=== PATIENT | female | born 1935 | race Caucasian/White ===

== ENCOUNTER 2017-05-24 09:37 | Emergency (ER) | payer MEDICARE ==
[~2017-05-24] VITALS: Ht 160 cm; Wt 62.0 kg
[~2017-05-24 09:37] MED LIST: ABIL2TAB2 OR; CLON1 PO; CYMB60CA OR; LEVO50TA4 PO; OMEP20CA5 PO; OMPR20CCR; OXYC-360 PO; SERO25TA PO; SPIR50; ZOPENEX; [UNRECOGNIZED DRUG - OTHER]; [UNRECOGNIZED DRUG - OTHER]
[2017-05-24 09:44] VITALS: BP 135/61; PULSE 67; RESP 18; TEMP 97.6; O2SAT 95
--- NOTE | 2017-05-24 10:22 | PD ---
HPI Chief Complaint: Headache Time Seen by Provider: 10:00 Travel History International Travel<30 days: No Contact w/Intl Traveler<30days: No Traveled to known affect area: No History of Present Illness HPI Patient is a 78 history Presents to the emergency department for evaluation of headache past 4 days. The patient has a history of subdural hematoma in the past. She is not on any anticoagulants at this time. She describes a mechanical fall at home four days ago. Denies any chest pain shortness of breath abdominal pain nausea vomiting diarrhea blurred vision focalized weakness neck pain or back pain. PFSH Past Medical History Arthritis: Yes Asthma: No Blood Disorders: No Anxiety: Yes Depression: Yes Heart Rhythm Problems: No Cancer: Yes (BREAST, '03, WITH XRT) Cardiovascular Problems: Yes High Cholesterol: Yes Chest Pain: No Congestive Heart Failure: Yes COPD: Yes Cerebrovascular Accident: No Diabetes: No Gastrointestinal Disorders: Yes GERD: Yes Glaucoma: No Genitourinary: Yes Headaches: No Hepatitis: No Hiatal Hernia: No Hypertension: Yes Kidney Stones: No Medical other: Yes (hx of pulmonary embolus) Musculoskeletal: Yes Neurologic: Yes Reproductive: No Respiratory: Yes (PULMONARY FIBROSIS) Migraines: No Myocardial Infarction: Yes Renal Failure: No Seizures: No Sleep Apnea: No Thyroid Disease: Yes Ulcer: No Tetanus Vaccination: < 5 Years Influenza Vaccination: Yes Menopausal: Yes Past Surgical History Appendectomy: Yes Cardiac Surgery: No Cholecystectomy: Yes Ear Surgery: No Endocrine Surgery: No Eye Surgery: Yes (maisha cataract removal) Genitourinary Surgery: No Gynecologic Surgery: Yes (hysterectomy) Hysterectomy: Yes Neurologic Surgery: Yes (anterior cervical fusion c&s) Oral Surgery: No Pacemaker: No Thoracic Surgery: Yes (right breast lumpectomy) Other Surgery: Yes Social History Alcohol Use: Yes (GLASS OF WINE NIGHTLY) Tobacco Use: No Substance Use: No Allergies-Medications (Allergen,Severity, Reaction): Coded Allergies: penicillin G (Unverified Allergy, Severe, 05/20/17) skin irritation and rash Sulfa (Sulfonamide Antibiotics) (Unverified Allergy, Mild, 05/20/17) levofloxacin (Unverified Allergy, Mild, Rash, 05/20/17) Reported Meds & Prescriptions Reported Meds & Active Scripts Active Fioricet (Wllvbnlist-Stutrpobnrmlt-Haruavtq) 50-300-40 Mg Cap 1 Cap PO Q6H PRN Reported Vitamin D3 (Cholecalciferol) 50,000 Unit Cap 50,000 Units PO Q7D Gabapentin 400 Mg Cap 400 Cap PO HS Omeprazole 20 Mg Tab 20 Mg PO BID Raloxifene (Raloxifene HCl) 60 Mg Tab 60 Mg PO DAILY Metoprolol Tartrate 25 Mg Tab 25 Mg PO BID Levothyroxine (Levothyroxine Sodium) 88 Mcg Tab 88 Mcg PO DAILY Isosorbide Mononitrate 20 Mg Tab 20 Mg PO BID Take 2 doses 7 hours apart. Spironolactone 25 Mg Tab 25 Mg PO DAILY Review of Systems Except as stated in HPI: all other systems reviewed are Neg Physical Exam Narrative GENERAL: Well-developed well-nourished no obvious distress, quite pleasant. SKIN: Focused skin assessment warm/dry. HEAD: Atraumatic. Normocephalic. No seaman signs no raccoons eyes EYES: Pupils equal and round. No scleral icterus. No injection or drainage. ENT: No nasal bleeding or discharge. Mucous membranes pink and moist. NECK: Trachea midline. No JVD. CARDIOVASCULAR: Regular rate and rhythm. No murmur appreciated. RESPIRATORY: No accessory muscle use. Clear to auscultation. Breath sounds equal bilaterally. GASTROINTESTINAL: Abdomen soft, non-tender, nondistended. Hepatic and splenic margins not palpable. MUSCULOSKELETAL: No obvious deformities. No clubbing. No cyanosis. No edema. NEUROLOGICAL: Awake and alert. Cranial nerves II through XII are grossly intact nonfocal, 5 out of 5 strength in all 4 extremities, cerebellar testing negative, ambulates within even narrow based gait. PSYCHIATRIC: Appropriate mood and affect; insight and judgment normal. Data Data Last Documented VS Vital Signs Date Time Temp Pulse Resp B/P (MAP) Pulse Ox O2 Delivery O2 Flow Rate FiO2 05/24/17 10:18 97 Room Air 05/24/17 09:44 97.6 67 18 135/61 (85) Orders Orders Ct Brain W/O Iv Contrast(Rout) (05/24/17 ) Ct Cerv Spine W/O Contrast (05/24/17 ) MDM Medical Decision Making Medical Screen Exam Complete: Yes Emergency Medical Condition: Yes Differential Diagnosis Closed head injury, cranial hemorrhage, neck injury, mechanical fall. Narrative Course Patient roomed in emergency department neurologically intact and shows no visible signs of trauma. CAT scan of head and neck are negative. Discussed fall prevention she is stable for discharge discussed return to ED criteria. We did discuss the lung nodule and recommended that she follows up with her primary care physician. Last [address] 05/24/17 0000 Signed Impressions: Service Date/Time: Wednesday, May 24, 2017 10:27 - CONCLUSION: Nonspecific white matter changes. Johnnie Rucker MD Cervical Spine CT 05/24/17 0000 Signed Impressions: Service Date/Time: Wednesday, May 24, 2017 10:27 - CONCLUSION: 1. Anterior fusion C4-C6. 2. No fracture or subluxation. 3. Interstitial lung disease and biapical pleural-parenchymal densities. Followup CT chest in 3 months recommended. Johnnie Rucker MD Diagnosis Primary Impression: Closed head injury Additional Impression: Lung nodule Med/Other Pt SpecificInfo: Prescription(s) given Scripts Mxjqrapvgf-Daneareorskfd-Fbafzgjo (Fioricet) 50-300-40 Mg Cap 1 CAP PO Q6H Y for HEADACHE, #15 CAP 0 Refills Prov: Wlater Del Cid MD 05/24/17 Disposition: 01 DISCHARGE HOME Condition: Stable Walter Del Cid MD May 24, 2017 10:22
[2017-05-24] MEDS ORDERED: METO25TA3 PO (10:24)
[2017-05-24] MEDS ORDERED: RALO1TAB PO (10:24)
[2017-05-24] MEDS ORDERED: GABA400C5 PO (10:24)
[2017-05-24] MEDS ORDERED: CHOL1CAP34 PO (10:24)
[2017-05-24] MEDS ORDERED: OMEP20TA PO (10:24)
[2017-05-24] MEDS ORDERED: ISOS20TA PO (10:24)
[2017-05-24] MEDS ORDERED: SPIR25TA PO (10:24)
[2017-05-24] MEDS ORDERED: LEVO88TA2 PO (10:24)
--- NOTE | 2017-05-24 10:48 | RADRPT ---
EXAM DATE/TIME: 05/24/2017 10:27 [facility] COMPARISON: No previous studies available for comparison. INDICATIONS : Fall hitting back of head. RADIATION DOSE: 52.35 CTDIvol (mGy) MEDICAL HISTORY : Pulmonary fibrosis, colon resection, Hx PE SURGICAL HISTORY : Hysterectomy. Cervial fusion ENCOUNTER: Initial ACUITY: 3 days PAIN SCALE: 8/10 LOCATION: cranial posterior. TECHNIQUE: Multiple contiguous axial images were obtained of the head. Using automated exposure control and adj ustment of the mA and/or kV according to patient size, radiation dose was kept as low as reasonably a chievable to obtain optimal diagnostic quality images. DICOM format image data is available electro nically for review and comparison. FINDINGS: CEREBRUM: Areas of low-attenuation in periventricular white matter. The ventricles are normal for age. No evid ence of midline shift, mass lesion, hemorrhage or acute infarction. No extra-axial fluid collections are seen. POSTERIOR FOSSA: The cerebellum and brainstem are intact. The 4th ventricle is midline. The cerebellopontine angle i s unremarkable. EXTRACRANIAL: The visualized portion of the orbits is intact. SKULL: The calvaria is intact. No evidence of skull fracture. CONCLUSION: Nonspecific white matter changes. Johnnie Rucker MD on May 24, 2017 at 10:46 Board Certified Radiologist. This report was verified electronically.
--- NOTE | 2017-05-24 11:00 | RADRPT ---
EXAM DATE/TIME: 05/24/2017 10:27 [facility] COMPARISON: No previous studies available for comparison. INDICATIONS : Fall hitting the back of head. RADIATION DOSE: 25.19 CTDIvol (mGy) MEDICAL HISTORY : Carcinoma, breast. Pulmonary fibrosis, hx PE, Colon resection.Rad Tx. SURGICAL HISTORY : Cervical fusion. ENCOUNTER: Initial ACUITY: 3 days PAIN SCALE: 8/10 LOCATION: Bilateral neck TECHNIQUE: Volumetric scanning of the cervical spine was performed. Multiplanar reconstructions in the sagittal, coronal and oblique axial planes were performed. Using automated exposure control and adjustment o f the mA and/or kV according to patient size, radiation dose was kept as low as reasonably achievable to obtain optimal diagnostic quality images. DICOM format image data is available electronically f or review and comparison. FINDINGS: VERTEBRAE: Normal vertebral body height. Anterior fusion plate C4-C6. ALIGNMENT: No evidence of subluxation. Interstitial lung disease with biapical pleural-parenchymal densities C2-C3: The bony spinal canal is normal in size. No evidence of disc bulge or herniation. The neural forami na are bilaterally patent. C3-C4: The bony spinal canal is normal in size. No evidence of disc bulge or herniation. The neural forami na are bilaterally patent. C4-C6: Anterior fusion plate. The bony spinal canal is normal in size. No evidence of disc bulge or herniat ion. The neural foramina are bilaterally patent. C6-C7: The bony spinal canal is normal in size. No evidence of disc bulge or herniation. The neural forami na are bilaterally patent. C7-T1: The bony spinal canal is normal in size. No evidence of disc bulge or herniation. The neural forami na are bilaterally patent. CONCLUSION: 1. Anterior fusion C4-C6. 2. No fracture or subluxation. 3. Interstitial lung disease and biapical pleural-parenchymal densities. Followup CT chest in 3 month s recommended. Johnnie Rucker MD on May 24, 2017 at 10:56 Board Certified Radiologist. This report was verified electronically.
[2017-05-24] MEDS ORDERED: BUTA1CAP PO (11:11)
== END 2017-05-24 11:15 | disposition home or self-care (01) ==
LOC: PHED 09:37
DX: S09.90XA Unspecified injury of head, initial encounter (principal); R91.1 Solitary pulmonary nodule; W19.XXXA Unspecified fall, initial encounter; Y92.009 Unspecified place in unspecified non-institutional (private) residence as the place of occurrence of the external cause
CPT/HCPCS: 70450; 72125; 99285

== ENCOUNTER 2018-03-22 08:47 | Observation (INO) | payer MEDICARE ==
[2018-03-22] VITALS (7 sets, daily range): BP systolic 122–140; BP diastolic 58–74; PULSE 59–73; RESP 18–20; TEMP 97.8; O2SAT 93–98
[~2018-03-22] VITALS: Ht 162.6 cm; Wt 60.3 kg
[~2018-03-22 08:47] MED LIST changes: -ABIL2TAB2 OR; +BUTA1CAP PO; +CHOL1CAP34 PO; -CLON1 PO; -CYMB60CA OR; +GABA400C5 PO; +ISOS20TA PO; -LEVO50TA4 PO; +LEVO88TA2 PO; +METO25TA3 PO; -OMEP20CA5 PO; +OMEP20TA93 PO; -OMPR20CCR; -OXYC-360 PO; +RALO1TAB PO; -SERO25TA PO; +SPIR25TA PO; -SPIR50; -ZOPENEX; -[UNRECOGNIZED DRUG - OTHER]; -[UNRECOGNIZED DRUG - OTHER]
[2018-03-22] MEDS ORDERED: NITR0.4S SL (09:00)
--- NOTE | 2018-03-22 09:04 | PD ---
HPI Chief Complaint: Chest Pain Time Seen by Provider: 09:03 Travel History International Travel<30 days: No Contact w/Intl Traveler<30days: No Traveled to known affect area: No History of Present Illness HPI 82-year-old female came to the emergency room brought by her daughter with history of substernal chest pain on and off since last night. Patient describes the pain as sharp and nonradiating. No aggravating or relieving factors identified. The pain was last they are just 5-10 minutes prior to my arrival. Patient has not had this kind of pain in the past. As per the daughter she has history of coronary arteries spasm about 15-20 years ago. She is not on any blood thinners. She has acceptable vital signs. Patient's last stress test was couple years ago as per the daughter. No history of shortness of breath or hemoptysis. No history of syncopal episode or dizziness. Patient has history of PE about 15 years ago. PFSH Past Medical History Narrative Medical List of her past medical, surgical, social and family history is reviewed from the nursing note. Arthritis: Yes Asthma: No Blood Disorders: No Anxiety: Yes Depression: Yes Heart Rhythm Problems: No Cancer: Yes (BREAST, '03, WITH XRT) Cardiovascular Problems: Yes High Cholesterol: Yes Chest Pain: No Congestive Heart Failure: Yes COPD: Yes Cerebrovascular Accident: No Diabetes: No Gastrointestinal Disorders: Yes GERD: Yes Glaucoma: No Genitourinary: Yes Headaches: No Hepatitis: No Hiatal Hernia: No Hypertension: Yes Kidney Stones: No Musculoskeletal: Yes Neurologic: Yes Reproductive: No Respiratory: Yes (PULMONARY FIBROSIS) Migraines: No Myocardial Infarction: Yes Renal Failure: No Seizures: No Sleep Apnea: No Thyroid Disease: Yes Ulcer: No ?: Not Menopausal: Yes Past Surgical History Appendectomy: Yes Cardiac Surgery: No Cholecystectomy: Yes Ear Surgery: No Endocrine Surgery: No Eye Surgery: Yes (maisha cataract removal) Genitourinary Surgery: No Gynecologic Surgery: Yes (hysterectomy) Hysterectomy: Yes Neurologic Surgery: Yes (anterior cervical fusion c&s) Oral Surgery: No Pacemaker: No Thoracic Surgery: Yes (right breast lumpectomy) Other Surgery: Yes Social History Alcohol Use: Yes (GLASS OF WINE NIGHTLY) Tobacco Use: No Substance Use: No Allergies-Medications (Allergen,Severity, Reaction): Coded Allergies: penicillin G (Unverified Allergy, Severe, 03/22/18) skin irritation and rash Sulfa (Sulfonamide Antibiotics) (Unverified Allergy, Mild, 03/22/18) levofloxacin (Unverified Allergy, Mild, Rash, 03/22/18) Comments List of her allergies reviewed from the nursing note Reported Meds & Prescriptions Reported Meds & Active Scripts Active Reported Viibryd (Vilazodone) 40 Mg Tab 40 Mg PO HS Nitrostat SL (Nitroglycerin) 0.4 Mg Subl 0.4 Mg SL DIRECTED PRN 1 tablet under the tongue as needed for chest pain. Repeat every 5 minutes for a total of 3 DOSES or call 911 if NO relief. Vitamin D3 (Cholecalciferol) 50,000 Unit Cap 50,000 Units PO Q7D Omeprazole 20 Mg Tab 20 Mg PO BID Metoprolol Tartrate 25 Mg Tab 25 Mg PO BID Levothyroxine (Levothyroxine Sodium) 88 Mcg Tab 88 Mcg PO DAILY Spironolactone 25 Mg Tab 25 Mg PO DAILY Narrative Medication List of her home medications reviewed from the nursing note Review of Systems Except as stated in HPI: all other systems reviewed are Neg Cardiovascular: Positive: Chest Pain or Discomfort Physical Exam Narrative GENERAL: Awake, alert, elderly, no obvious distress SKIN: Focused skin assessment warm/dry. HEAD: Atraumatic. Normocephalic. EYES: Pupils equal and round. No scleral icterus. No injection or drainage. ENT: No nasal bleeding or discharge. Mucous membranes pink and moist. NECK: Trachea midline. No JVD. CARDIOVASCULAR: Regular rate and rhythm. No murmur appreciated. RESPIRATORY: No accessory muscle use. Clear to auscultation. Breath sounds equal bilaterally. GASTROINTESTINAL: Abdomen soft, non-tender, nondistended. Hepatic and splenic margins not palpable. MUSCULOSKELETAL: No obvious deformities. No clubbing. No cyanosis. No edema. NEUROLOGICAL: Awake and alert. No obvious cranial nerve deficits. Motor grossly within normal limits. Normal speech. PSYCHIATRIC: Appropriate mood and affect; insight and judgment normal. Data Data Last Documented VS Vital Signs Date Time Temp Pulse Resp B/P (MAP) Pulse Ox O2 Delivery O2 Flow Rate FiO2 03/22/18 10:45 68 18 133/64 (87) 98 Nasal Cannula 2.00 03/22/18 08:53 97.8 Orders Orders Electrocardiogram (03/22/18 08:57) Complete Blood Count With Diff (03/22/18 08:57) Basic Metabolic Panel (Bmp) (03/22/18 08:57) Ckmb (Isoenzyme) Profile (03/22/18 08:57) Troponin I (03/22/18 08:57) Chest, Single Ap (03/22/18 08:57) Iv Access Insert/Monitor (03/22/18 08:57) Ecg Monitoring (03/22/18 08:57) Oxygen Administration (03/22/18 08:57) Oximetry (03/22/18 08:57) Prothrombin Time / Inr (Pt) (03/22/18 08:57) Act Partial Throm Time (Ptt) (03/22/18 08:57) Aspirin Chew (Aspirin Chew) (03/22/18 10:00) Ct Pulmonary Angiogram (03/22/18 ) Iohexol 350 Inj (Omnipaque 350 Inj) (03/22/18 10:39) Admit Order (Ed Use Only) (03/22/18 11:13) Labs Laboratory Tests Test 03/22/18 09:00 White Blood Count 8.4 TH/MM3 Red Blood Count 4.51 MIL/MM3 Hemoglobin 14.1 GM/DL Hematocrit 42.1 % Mean Corpuscular Volume 93.2 FL Mean Corpuscular Hemoglobin 31.2 PG Mean Corpuscular Hemoglobin Concent 33.5 % Red Cell Distribution Width 13.4 % Platelet Count 372 TH/MM3 Mean Platelet Volume 7.5 FL Neutrophils (%) (Auto) 54.3 % Lymphocytes (%) (Auto) 33.5 % Monocytes (%) (Auto) 9.2 % Eosinophils (%) (Auto) 2.3 % Basophils (%) (Auto) 0.7 % Neutrophils # (Auto) 4.5 TH/MM3 Lymphocytes # (Auto) 2.8 TH/MM3 Monocytes # (Auto) 0.8 TH/MM3 Eosinophils # (Auto) 0.2 TH/MM3 Basophils # (Auto) 0.1 TH/MM3 CBC Comment DIFF FINAL Differential Comment Prothrombin Time 9.8 SEC Prothromb Time International Ratio 1.0 RATIO Activated Partial Thromboplast Time 22.6 SEC Blood Urea Nitrogen 20 MG/DL Creatinine 0.79 MG/DL Random Glucose 94 MG/DL Calcium Level 8.8 MG/DL Sodium Level 138 MEQ/L Potassium Level 3.9 MEQ/L Chloride Level 105 MEQ/L Carbon Dioxide Level 25.9 MEQ/L Anion Gap 7 MEQ/L Estimat Glomerular Filtration Rate 69 ML/MIN Total Creatine Kinase 51 U/L Troponin I LESS THAN 0.02 NG/ML MDM Medical Decision Making Medical Screen Exam Complete: Yes Emergency Medical Condition: Yes Medical Record Reviewed: Yes Interpretation(s) Twelve-lead EKG was reviewed by me. Normal sinus rhythm, normal axis, nonspecific ST-T wave changes. Heart rate of 64 bpm Differential Diagnosis ACS, non-STEMI, PE Narrative Course 11:10 AM test results are back and within normal limits. Patient was given 2 baby aspirins to chew. Given her previous history of PE a CT pulmonary angiogram was ordered which has been read by the radiologist to be negative. I would like to admit the patient to rule out ACS. Awaiting for the hospitalist to call back. Procedures EKG Prior to Arrival: No Diagnosis Primary Impression: Chest pain Qualified Codes: R07.9 - Chest pain, unspecified Admitting Information Admitting Physician Requests: Observation Arnel Samuels MD Mar 22, 2018 09:04
[2018-03-22] MEDS ORDERED: VIIB40TA PO (09:07)
[2018-03-22 09:16] LABS: AUTOMATED NEUTROPHIL # 4.5 TH/MM3 (1.8-7.7); BASOPHIL # 0.1 TH/MM3 (0-0.2); BASOPHIL % 0.7 % (0.0-2.0); EOSINOPHIL # 0.2 TH/MM3 (0-0.4); EOSINOPHIL % 2.3 % (0.0-4.0); HEMATOCRIT 42.1 % (35.0-46.0); HEMOGLOBIN 14.1 GM/DL (11.6-15.3); LYMPH % 33.5 % (9.0-44.0); LYMPHOCYTE # 2.8 TH/MM3 (1.0-4.8); MEAN CELL VOLUME 93.2 FL (80.0-100.0); MEAN CORPUSCULAR HEMOGLOBIN 31.2 PG (27.0-34.0); MEAN CORPUSCULAR HGB CONC 33.5 % (32.0-36.0); MEAN PLATELET VOLUME 7.5 FL (7.0-11.0); MONO % 9.2 % (0.0-8.0); MONOCYTE # 0.8 TH/MM3 (0-0.9); NEUT % 54.3 % (16.0-70.0); PLATELET COUNT 372 TH/MM3 (150-450); RED BLOOD COUNT 4.51 MIL/MM3 (4.00-5.30); RED CELL DISTRIBUTION WIDTH 13.4 % (11.6-17.2); WHITE BLOOD COUNT 8.4 TH/MM3 (4.0-11.0)
--- NOTE | 2018-03-22 09:20 | RADRPT ---
EXAM DATE: 03/22/2018 9:13 AM EDT AGE/SEX: 82 years / Female INDICATIONS: Chest pain today CLINICAL DATA: This is the patient's initial encounter. Patient reports that signs and symptoms have been present for 1 day and indicates a pain score of 7/10. MEDICAL/SURGICAL HISTORY: Non-responsive. Carcinoma, breast. Pulmonary fibrosis, hx PE, Colon r esection. Rad Tx None. COMPARISON: No prior exams available for comparison. FINDINGS: AP view of the chest demonstrates a normal-sized cardiac silhouette. EKG lines overlie the patient. N o effusion, consolidation, or pneumothorax is identified. Bones and soft tissues demonstrate no acute abnormality. Cervical spine hardware is present. CONCLUSION: No acute cardiopulmonary abnormality is identified. Electronically signed by: Desmond Cordero MD 03/22/2018 9:19 AM EDT
[2018-03-22 09:41] LABS: PROTHROMBIN TIME - PATIENT 9.8 SEC (9.8-11.6)
[2018-03-22 10:00] LABS: CALCIUM 8.8 MG/DL (8.5-10.1)
[2018-03-22] MEDS ORDERED: ASPIRIN 81 MG CHEW TAB CHEW ONE (10:00)
[2018-03-22 10:01] LABS: BICARBONATE 25.9 MEQ/L (21.0-32.0); BLOOD UREA NITROGEN 20 MG/DL (7-18); GLUCOSE,RANDOM 94 MG/DL (74-106)
[2018-03-22 10:02] LABS: CHLORIDE 105 MEQ/L (98-107); SODIUM (NA) 138 MEQ/L (136-145)
[2018-03-22 10:04] LABS: CREATININE 0.79 MG/DL (0.50-1.00); GLOMERULAR FILTRATION RATE 69 ML/MIN (>89)
[2018-03-22 10:09] LABS: TROPONIN I LESS THAN 0.02 NG/ML (0.02-0.05)
[2018-03-22] MEDS ORDERED: IOHEXOL 350 MG/ML 10 ML VIAL (for RAD DIAG) IVCONTRAST ONE (10:39)
--- NOTE | 2018-03-22 10:49 | RADRPT ---
EXAM DATE: 03/22/2018 10:40 AM EDT AGE/SEX: 82 years / Female INDICATIONS: Short of breath and intermittent chest pain. CLINICAL DATA: This is the patient's initial encounter. Patient reports that signs and symptoms have been present for 1 day and indicates a pain score of 3/10. MEDICAL/SURGICAL HISTORY: Carcinoma, breast. Myocardial infarct. Pulmonary embolism. Hysterectomy. Appendectomy. Cholecystectomy. Right breast lumpectomy. Colon resection. Cervical fusion. RADIATION DOSE: 9.79 CTDI (mGy) COMPARISON: [facility], CT CERVICAL SPINE W/O CONTRAST, 05/24/2017. . TECHNIQUE: Volumetric scanning was performed using a multi-row detector CT scanner during bolus infu dorothea of 50 ml Omnipaque 350 (iohexol) nonionic water-soluble contrast as a single exam dose. The trini a was post processed with a variety of visualization algorithms including full volume maximum intensi ty projection and sliding thin slab reformation. Using automated exposure control and adjustment of the mA and/or kV according to patient size, radiation dose was kept as low as reasonably achievable t o obtain optimal diagnostic quality images. FINDINGS: Pulmonary Arteries: No filling defect is identified through the segmental and some of the subsegmenta l level pulmonary arteries. Lungs: No consolidation or pneumothorax is identified. There is biapical pleural parenchymal opacity similar to the prior examination, likely representing scar. Mediastinum: The heart and great vessels demonstrate no acute abnormality. There is a stable soft ti ssue nodule in the anterior mediastinum measuring 1.6 x 1.1 cm. This was reported on a prior CT scan from 2009 but those images are not available for direct comparison. There is moderate atherosclerotic disease of the aorta. Pleurae: No pleural effusion. Axillae: No lymphadenopathy. There are surgical clips in the right axilla. Musculoskeletal: No acute osseous abnormality is identified. There are degenerative changes of the t horacic spine. Old healed right rib fractures are present. Other: Visualized upper abdominal structures demonstrate no acute abnormality. Small hiatal hernia i s present. There is pneumobilia. Postsurgical changes are present in the right breast. CONCLUSION: 1. No PE is identified. Additionally, no acute finding is identified to explain the clinical symptom s. 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 2. The soft tissue mass in the anterior mediastinum measuring 1.6 cm as remained stable compared to the [address] report. This suggests a benign process. Electronically signed by: Desmond Cordero MD 03/22/2018 10:48 AM EDT
--- NOTE | 2018-03-22 11:58 | HHI.HP ---
[facility] Service [facility] Primary Care Physician Non-Staff Admission Diagnosis Chest pain, rule out ACS Diagnoses: Chief Complaint: Atypical chest pain Travel History International Travel<30 Days: No Contact w/Intl Traveler <30 Da: No Traveled to Known Affected Are: No History of Present Illness This patient is an 82-year-old female with a history of cardiovascular spasm and came to the emergency room with 1 days of severe chest pain rated 10 out of 10, it was intermittent and sharp and not relieved with anything until she received nitro in the emergency room. Occurred at rest it was nonradiating and has had no other associated symptoms. On telemetry she has been in sinus rhythm. She has not had any elevation in her cardiac enzymes and on my review her EKG is unremarkable for ischemic changes. She has becets vascular syndrome and does not take any anti-inflammatories. She does have a history also of pancreatic stricture s/p dilation per patient. She has been admitted to this hospital for further eval. Review of Systems Constitutional: DENIES: Diaphoretic episodes, Fatigue, Fever, Weight gain, Weight loss, Chills, Dizziness, Change in appetite, Night Sweats Endocrine: DENIES: Abnorml menstrual pattern, Heat/cold intolerance, Polydipsia , Polyuria, Polyphagia Eyes: DENIES: Blurred vision, Diplopia, Eye inflammation, Eye pain, Vision loss , Photosensitivity, Double Vision Ears, nose, mouth, throat: DENIES: Tinnitus, Hearing loss, Vertigo, Nasal discharge, Oral lesions, Throat pain, Hoarseness, Ear Pain, Running Nose, Epistaxis, Sinus Pain, Toothache, Odynophagia Respiratory: DENIES: Apneas, Cough, Snoring, Wheezing, Hemoptysis, Sputum production, Shortness of breath Cardiovascular: COMPLAINS OF: Chest pain, DENIES: Palpitations, Syncope, Dyspnea on Exertion, PND, Lower Extremity Edema, Orthopnea, Claudication Gastrointestinal: DENIES: Abdominal pain, Black stools, Bloody stools, Constipation, Diarrhea, Nausea, Vomiting, Difficulty Swallowing, Anorexia Genitourinary: DENIES: Abnormal vaginal bleeding, Dysmenorrhea, Dyspareunia, Sexual dysfunction, Urinary frequency, Urinary incontinence, Urgency, Hematuria , Dysuria, Nocturia, Vaginal discharge Musculoskeletal: DENIES: Joint pain, Muscle aches, Stiffness, Joint Swelling, Back pain, Neck pain Integumentary: DENIES: Abnormal pigmentation, Pruritus, Rash, Nail changes, Breast masses, Breast skin changes, Nipple discharge Hematologic/lymphatic: DENIES: Bruising, Lymphadenopathy Immunologic/allergic: DENIES: Eczema, Urticaria Neurologic: DENIES: Abnormal gait, Headache, Localized weakness, Paresthesias, Seizures, Speech Problems, Tremor, Poor Balance Psychiatric: DENIES: Anxiety, Confusion, Mood changes, Depression, Hallucinations, Agitation, Suicidal Ideation, Homicidal Ideation, Delusions Except as stated in HPI: all other systems reviewed are Neg Past Family Social History Past Medical History Mitral valve prolapse Hypertension Hypothyroidism Pancreatic stricture 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 Past Surgical History Anterior cervical fusion Hysterectomy Bilateral cataracts Cholecystectomy Reported Medications Reviewed in the EMR, nothing new Allergies: Coded Allergies: penicillin G (Unverified Allergy, Severe, 03/22/18) skin irritation and rash Sulfa (Sulfonamide Antibiotics) (Unverified Allergy, Mild, 03/22/18) levofloxacin (Unverified Allergy, Mild, Rash, 03/22/18) Active Ordered Medications Reviewed in the EMR Family History Patient does not recall and is noncontributory due to age of 82 Social History No tobacco or alcohol dependency, lives with her son Independent with ADLs Physical Exam Vital Signs Vital Signs Date Time Temp Pulse Resp B/P (MAP) Pulse Ox O2 Delivery O2 Flow Rate FiO2 03/22/18 10:45 68 18 133/64 (87) 98 Nasal Cannula 2.00 03/22/18 10:45 68 03/22/18 09:08 98 Nasal Cannula 2.00 03/22/18 09:08 65 20 131/70 (90) 96 Nasal Cannula 2.00 03/22/18 08:56 73 24 97 Room Air 03/22/18 08:53 97.8 73 20 122/74 (90) 97 Physical Exam GENERAL: This is a well-nourished, well-developed patient, in no apparent distress. SKIN: No rashes, ecchymoses or lesions. Cool and dry. HEAD: Atraumatic. Normocephalic. No temporal or scalp tenderness. EYES: Pupils equal round and reactive. Extraocular motions intact. No scleral icterus. No injection or drainage. ENT: Nose without bleeding, purulent drainage or septal hematoma. Throat without erythema, tonsillar hypertrophy or exudate. Uvula midline. Airway patent. NECK: Trachea midline. No JVD or lymphadenopathy. Supple, nontender, no meningeal signs. CARDIOVASCULAR: Regular rate and rhythm without gallops or rubs there is a systolic murmur RESPIRATORY: Clear to auscultation. Breath sounds equal bilaterally. No wheezes , rales, or rhonchi. GASTROINTESTINAL: Abdomen soft, non-tender, nondistended. No hepato-splenomegaly , or palpable masses. No guarding. MUSCULOSKELETAL: Extremities without clubbing, cyanosis, or edema. No joint tenderness, effusion, or edema noted. No calf tenderness. Negative Homans sign bilaterally. NEUROLOGICAL: Awake and alert. Cranial nerves II through XII intact. Motor and sensory grossly within normal limits. Five out of 5 muscle strength in all muscle groups. Normal speech. Laboratory Laboratory Tests Test 03/22/18 09:00 White Blood Count 8.4 Red Blood Count 4.51 Hemoglobin 14.1 Hematocrit 42.1 Mean Corpuscular Volume 93.2 Mean Corpuscular Hemoglobin 31.2 Mean Corpuscular Hemoglobin Concent 33.5 Red Cell Distribution Width 13.4 Platelet Count 372 Mean Platelet Volume 7.5 Neutrophils (%) (Auto) 54.3 Lymphocytes (%) (Auto) 33.5 Monocytes (%) (Auto) 9.2 Eosinophils (%) (Auto) 2.3 Basophils (%) (Auto) 0.7 Neutrophils # (Auto) 4.5 Lymphocytes # (Auto) 2.8 Monocytes # (Auto) 0.8 Eosinophils # (Auto) 0.2 Basophils # (Auto) 0.1 CBC Comment DIFF FINAL Differential Comment Prothrombin Time 9.8 Prothromb Time International Ratio 1.0 Activated Partial Thromboplast Time 22.6 Blood Urea Nitrogen 20 Creatinine 0.79 Random Glucose 94 Calcium Level 8.8 Sodium Level 138 Potassium Level 3.9 Chloride Level 105 Carbon Dioxide Level 25.9 Anion Gap 7 Estimat Glomerular Filtration Rate 69 Total Creatine Kinase 51 Troponin I LESS THAN 0.02 Result Diagram: 03/22/18 0900 03/22/18 09 Imaging Last Impressions Chest X-Ray 03/22/18 0857 Signed Impressions: CONCLUSION: No acute cardiopulmonary abnormality is identified. CT Angiography 03/22/18 0000 Signed Impressions: CONCLUSION: 1. No PE is identified. Additionally, no acute finding is identified to explai n the clinical symptoms. 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 2. The soft tissue mass in the anterior mediastinum measuring 1.6 cm as remain ed stable compared to the [address] report. This suggests a benign process. Assessment and Plan Problem List: (1) Chest pain ICD Code: R07.9 - Chest pain, unspecified Status: Acute Plan: Patient with a history of cardiovascular spasm. Continue to follow on telemetry Cardiac enzymes and EKG in serial fashion Morphine, oxygen, nitro, aspirin per protocol Follow-up stress test Assessment and Plan Continue home medications for hypothyroidism, mitral valve and hypertension Discussed Condition With full code Problem Qualifiers (1) Chest pain: Qualified Codes: R07.9 - Chest pain, unspecified Melia Allison MD Mar 22, 2018 11:58
[2018-03-22] MEDS ORDERED: FAMOTIDINE 20 MG TAB PO SCH (12:00)
[2018-03-22] MEDS ORDERED: ACETAMINOPHEN/HYDROcodone 325 MG/7.5 MG TAB PO PRN (12:00)
[2018-03-22] MEDS ORDERED: METOPROLOL TARTRATE 25 MG TAB PO SCH (12:00)
[2018-03-22] MEDS ORDERED: SODIUM CHLORIDE 0.9% FLUSH 10 ML FLUSH IV FLUSH PRN (12:00)
[2018-03-22] MEDS ORDERED: PANTOPRAZOLE SOD 20 MG DELAYED RELEASE TAB PO SCH (12:00)
[2018-03-22] MEDS ORDERED: NITROGLYCERIN 0.4 MG SL 25 TABS/BTL SL PRN (12:00)
[2018-03-22 12:23] LABS: TROPONIN I LESS THAN 0.02 NG/ML (0.02-0.05)
--- NOTE | 2018-03-22 13:57 | EKG ---
Date Performed: 03/22/2018 Time Performed: 08:51:26 PTAGE: 82 years EKG: Sinus rhythm NORMAL ECG PREVIOUS TRACING : 12/21/2009 02.14 Since the previous tracing, no significant change noted DOCTOR: Jace Chow Interpretating Date/Time 03/22/2018 13:47:49
[2018-03-22] MEDS ORDERED: REGADENOSON INJ 0.4 MG/5 ML SYR IV ONE (14:12)
--- NOTE | 2018-03-22 15:12 | RADRPT ---
EXAM DATE: 03/22/2018 2:46 PM EDT AGE/SEX: 82 years / Female INDICATIONS:Angina. . Substernal chest pain for one day. CLINICAL DATA: This is the patient's initial encounter. Patient reports that signs and symptoms have been present for 1 day and indicates a pain score of 4/10. MEDICAL/SURGICAL HISTORY: Chronic obstructive pulmonary disease. Myocardial infarction. Hyster ectomy. COMPARISON: No prior exams available for comparison. DOSE: 8.5 mCi Tc 99m Myoview at rest 25.4 mCi [id number] at stress 0.4 mg Lexiscan STRESS SYMPTOMS: Asymptomatic EJECTION FRACTION: >70 % TECHNIQUE: The patient underwent pharmacologic stress with infusion of prescribed dose. Continuous ECG tracing was monitored during stress. Gated SPECT imaging was performed after stress and conventi onal SPECT imaging was performed at rest. The examination was performed on a SPECT/CT scanner, both attenuation and non-corrected datasets were reviewed. FINDINGS: Distribution: The maximum perfused segment at stress is in the anterior lateral wall. Perfusion Study: The pattern of perfusion at stress is within normal limits with regional variation s perfusion within 30%. Apparent perfusion at stress and rest is unchanged without evidence of redist ribution.. Gated Study: There are intact wall motion and wall thickening without hypokinetic or dyskinetic segm ents. The ejection fraction is calculated at >70%. RISK CATEGORY: Low (<1% Annual Motality Rate) CONCLUSION: 1. No evidence of stress-induced ischemia. 2. Intact wall motion with greater than 70% ejection fraction. Electronically signed by: Brennen Rojas MD 03/22/2018 3:11 PM EDT
--- NOTE | 2018-03-22 15:18 | HHI.DCPOC ---
Discharge Care Plan Diagnosis: (1) Chest pain Goals to Promote Your Health * To prevent worsening of your condition and complications * To maintain your health at the optimal level Directions to Meet Your Goals Take your medications as prescribed Follow your dietary instruction Follow activity as directed Keep your appointments as scheduled Take your immunizations and boosters as scheduled If your symptoms worsen call your PCP, if no PCP go to Urgent Care Center or Emergency Room Smoking is Dangerous to Your Health. Avoid second hand smoke Call the 24-hour hour crisis hotline for domestic abuse at Melia Allison MD Mar 22, 2018 15:18
[2018-03-22 16:12] LABS: TROPONIN I LESS THAN 0.02 NG/ML (0.02-0.05)
[2018-03-22] MEDS ORDERED: NON-FORMULARY DRUG (Vilazodone (Viibryd) 40 MG) PO SCH (21:00)
[2018-03-22] MEDS ORDERED: SODIUM CHLORIDE 0.9% FLUSH 10 ML FLUSH IV FLUSH SCH (21:00)
[2018-03-23] MEDS ORDERED: LEVOTHYROXINE SODIUM 88 MCG TAB PO SCH (06:00)
[2018-03-23] MEDS ORDERED: VILAZODONE 40 MG PO SCH (09:00)
[2018-03-23] MEDS ORDERED: SPIRONOLACTONE 25 MG TAB PO SCH (09:00)
--- NOTE | 2018-03-23 23:11 | EKG ---
Date Performed: 03/22/2018 Time Performed: 15:02:37 PTAGE: 82 years EKG: Sinus rhythm NORMAL ECG PREVIOUS TRACING : 03/22/2018 11.44 DOCTOR: Tee Sanabria Interpretating Date/Time 03/23/2018 23:01:12
--- NOTE | 2018-03-23 23:16 | EKG ---
Date Performed: 03/22/2018 Time Performed: 11:44:55 PTAGE: 82 years EKG: Sinus rhythm WITH OCCASIONAL VENTRICULAR PREMATURE COMPLEXES BORDERLINE ECG PREVIOUS TRACING : 03/22/2018 08.51 DOCTOR: Tee Sanabria Interpretating Date/Time 03/23/2018 23:03:56
== END 2018-03-22 15:48 | disposition home or self-care (01) ==
LOC: PHED 08:47 → PHEDA 11:15 → PH3A 12:03
PROVIDERS: ADMIT Hospitalist; ATTEND Hospitalist
DX: R07.89 Other chest pain (principal); I34.1 Nonrheumatic mitral (valve) prolapse; I50.9 Heart failure, unspecified; I11.0 Hypertensive heart disease with heart failure; I25.2 Old myocardial infarction; E03.9 Hypothyroidism, unspecified; K86.89 Other specified diseases of pancreas; J44.9 Chronic obstructive pulmonary disease, unspecified
CPT/HCPCS: 71045; 71275; 78452; 80048; 82550; 84484; 85025; 85610; 85730; 93005; 93017; 99285; A9502; G0378; J2785; Q9967